=== PATIENT | male | born 1970 | race Caucasian/White ===

== ENCOUNTER 2016-11-20 04:20 | Emergency (ER) | payer OTHER ==
[~2016-11-20] VITALS: Ht 182.9 cm; Wt 136.4 kg
[2016-11-20] MEDS ORDERED: MELO15TA4 PO (04:29)
[2016-11-20] MEDS ORDERED: CELE10TA PO (04:29)
[2016-11-20] MEDS ORDERED: KETOROLAC 30 MG/ML VIAL (J1885) IV ONE (04:45)
[2016-11-20] MEDS ORDERED: NS 1,000 ML IV ONE (04:45)
[2016-11-20] MEDS ORDERED: ONDANSETRON 4MG/2ML VIAL (J2405) IV ONE (04:45)
[2016-11-20 05:01] LABS: BASO % 0.4 % (0.0-1.0); EOS # 0.2 K/mm3 (0.0-0.50); EOS % 1.8 % (0.0-3.0); LARGE UNSTAINED CELL # 0.2 K/mm3 (0.0-0.4); LARGE UNSTAINED CELL % 2.2 % (0.0-4.0); LYMPH # 2.3 K/mm3 (1.5-4.5); LYMPH % 23.9 % (24.0-44.0); MEAN CORPUSCULAR HEMOGLOBIN 29.2 pg (27.0-33.0); MEAN CORPUSCULAR HGB CONC 34.2 g/dl (32.0-36.5); MEAN CORPUSCULAR VOLUME 85.4 fl (80.0-96.0); MONO # 0.5 K/mm3 (0.0-0.8); MONO % 5.4 % (0.0-5.0); NEUTROPHILS # 6.4 K/mm3 (1.8-7.7); NEUTROPHILS % 66.3 % (36.0-66.0); PLATELET COUNT, AUTOMATED 218 k/mm3 (150-450); RED CELL DISTRIBUTION WIDTH 13.2 % (11.5-14.5); WHITE BLOOD COUNT 9.7 K/mm3 (4.0-10.0)
[2016-11-20 05:28] LABS: ALBUMIN 4.3 GM/DL (3.2-5.2); ALBUMIN/GLOBULIN RATIO 1.43 (1.00-1.93); ALKALINE PHOSPHATASE 72 U/L (45-117); ALT/SGPT 33 U/L (12-78); AMYLASE 39 U/L (25-115); ANION GAP 12 MEQ/L (8-16); AST/SGOT 20 U/L (15-37); BILIRUBIN,DIRECT 0.1 MG/DL (0.0-0.2); BILIRUBIN,TOTAL 0.6 MG/DL (0.2-1.0); BLOOD UREA NITROGEN 21 MG/DL (7-18); CALCIUM LEVEL 9.3 MG/DL (8.5-10.1); CARBON DIOXIDE LEVEL 24 MEQ/L (21-32); CHLORIDE LEVEL 106 MEQ/L (98-107); CREATININE FOR GFR 1.24 MG/DL (0.70-1.30); GLOMERULAR FILTRATION RATE > 60.0 (>60); GLUCOSE, FASTING 158 MG/DL (70-105); POTASSIUM SERUM 3.5 MEQ/L (3.5-5.1); SODIUM LEVEL 142 MEQ/L (136-145); TOTAL PROTEIN 7.3 GM/DL (6.4-8.2)
--- NOTE | 2016-11-20 07:20 | REPUSA ---
CLINICAL HISTORY: Abdominal pain. TECHNIQUE: Multiple axial, sagittal and coronal CT images were obtained through the abdomen and pelvi s without administration of oral or IV contrast material. COMMENTS: Recent passage of a 3 mm stone from the right collecting system into the bladder. The above described stone is noted in the bladder on the current exam. Mild perirenal fat stranding. Mild prostatomegaly. Mild diffuse thickening of the wall of the bladder. Prostatic calcifications. Uncomplicated diverticulosis. The liver is of uniform attenuation without mass or defect. There is no intra or extrahepatic biliary ductal dilatation. The spleen is normal. The gallbladder is within normal limits. The pancreas is of normal contour and attenuation characteristics. There is no evidence of adrenal mass. There is no evidence for appendicitis. There is no bowel wall thickening. No evidence for small or la rge bowel obstruction. There is no evidence of abdominal ascites or lymphadenopathy. There is no evidence of intrinsic or extrinsic bladder mass. There is no pelvic ascites or lymphadeno mariely. Images of the lung bases show no evidence of pleural or parenchymal mass. There are no pleural effusi ons. Chronic benign sclerotic lesion of the left sacral ala. The bony structures are free of lytic or blastic lesions. IMPRESSION: Recent passage of a stone from the right collecting system into the bladder. The stone is noted in the bladder on the current exam. Prostatomegaly. Diffuse thickening of the wall of the bladder. Uncomplicated diverticulosis. Thank you for your kind referral of this patient.
[2016-11-20 08:19] VITALS: BP 100/64
--- NOTE | 2016-11-20 10:02 | ED PDOC ---
Post-Departure Follow-Up radiology report faxed to PCP, Gisella Barrios MD Nov 20, 2016 10:02
== END 2016-11-20 08:24 | disposition home or self-care (01) ==
LOC: M ED 04:20
DX: N21.0 Calculus in bladder (principal); N40.1 Benign prostatic hyperplasia with lower urinary tract symptoms; F33.9 Major depressive disorder, recurrent, unspecified; M17.10 Unilateral primary osteoarthritis, unspecified knee; Z79.899 Other long term (current) drug therapy
CPT/HCPCS: 74176; 80048; 80076; 81001; 82150; 82550; 82553; 83690; 85025; 87086; 93041; 96361; 96374; 96375; 99284; J1885; J2405

== ENCOUNTER 2019-01-25 12:07 | Emergency (ER) | payer OTHER ==
[~2019-01-25] VITALS: Ht 182.9 cm; Wt 135.8 kg
[~2019-01-25 12:07] MED LIST: CELE10TA PO; MELO15TA28 PO
[2019-01-25] MEDS ORDERED: NS 1,000 ML IV ONE (12:30)
[2019-01-25 12:53] LABS: HEMATOCRIT 47.5 % (42.0-52.0); MEAN CORPUSCULAR HEMOGLOBIN 28.2 pg (27.0-33.0); MEAN CORPUSCULAR HGB CONC 33.7 g/dl (32.0-36.5); MEAN CORPUSCULAR VOLUME 83.8 fl (80.0-96.0); PLATELET COUNT, AUTOMATED 201 10^3/uL (150-450); RED BLOOD COUNT 5.67 10^6/uL (4.30-6.10); WHITE BLOOD COUNT 9.1 10^3/uL (4.0-10.0)
[2019-01-25] MEDS ORDERED: KETOROLAC 30 MG/ML VIAL (J1885) IV ONE (13:00)
[2019-01-25] MEDS ORDERED: METOCLOPRAMIDE INJ 10MG/2ML VIAL (J2765) IV ONE (13:00)
--- NOTE | 2019-01-25 13:00 | REP ---
Clinical: Cough. Technique: PA and lateral. Comparison: 07/26/2011. Findings: The mediastinum and cardiac silhouette are normal. Bronchitis and subtle scattered air space disease is suggested. Impression: Findings suggest bronchitis and subtle multifocal infiltrates (left greater than right) . Electronically Signed by Erasto Aguila MD 01/25/2019 12:51 P
[2019-01-25 13:14] LABS: BLOOD UREA NITROGEN 14 MG/DL (7-18); CALCIUM LEVEL 8.6 MG/DL (8.5-10.1); CARBON DIOXIDE LEVEL 26 MEQ/L (21-32); CHLORIDE LEVEL 101 MEQ/L (98-107); CREATININE FOR GFR 1.04 MG/DL (0.70-1.30); GLOMERULAR FILTRATION RATE > 60.0 (>60); GLUCOSE, FASTING 127 MG/DL (70-100); POTASSIUM SERUM 3.8 MEQ/L (3.5-5.1); SODIUM LEVEL 135 MEQ/L (136-145)
[2019-01-25 13:20] LABS: INFLUENZA A AMPLIFICATION NEGATIVE (NEGATIVE); INFLUENZA B AMPLIFICATION NEGATIVE (NEGATIVE)
[2019-01-25] MEDS ORDERED: ALBUTEROL 90 MCG/ACT 8GM HFA INHALER INH ONE (13:30)
[2019-01-25] MEDS ORDERED: PROAAER10 INH (14:00)
[2019-01-25 14:05] VITALS: BP 114/56
== END 2019-01-25 14:11 | disposition home or self-care (01) ==
LOC: M ED 12:07
DX: R51 Headache (principal); B34.9 Viral infection, unspecified; G89.29 Other chronic pain; Z87.820 Personal history of traumatic brain injury; Z79.899 Other long term (current) drug therapy
CPT/HCPCS: 71046; 80048; 85027; 87502; 94640; 96361; 96374; 96375; 99284; J1885; J2765

== ENCOUNTER 2020-09-26 12:26 | Emergency (ER) | payer OTHER ==
[~2020-09-26] VITALS: Ht 182.9 cm; Wt 143.0 kg
[~2020-09-26 12:26] MED LIST changes: +PROAAER10 INH
[2020-09-26] MEDS ORDERED: PRAZ1CAP PO (12:54)
--- NOTE | 2020-09-26 14:18 | REP ---
INDICATION: trauma COMPARISON: None. TECHNIQUE: Axial noncontrast images from the skull base to the thoracic inlet with coronal and sagittal re-formations This CT examination was performed using the following dose reduction techniques: Automated exposure control, adjustment of mA and/or kv according to the patient's size, and use of iterative reconstruction technique. FINDINGS: Normal alignment is maintained. Cervical vertebral bodies including transverse processes and spinous processes are intact and there is no evidence for acute fracture / compression injury or subluxation. Moderate early advanced multilevel degenerative changes include endplate sclerosis, disc space narrowing, osteophytosis and facet hypertrophy paravertebral soft tissues are within normal limits. IMPRESSION: Moderate/advanced multilevel degenerative spondylosis. No evidence for acute pathology or trauma/injury. <Electronically signed by Erasto Aguila > 09/26/20 [id number]
[2020-09-26 14:19] LABS: BASO % 0.6 % (0.0-1.0); EOS # 0.2 10^3/uL (0.0-0.5); EOS % 2.4 % (0.0-3.0); HEMATOCRIT 44.7 % (42.0-52.0); HEMOGLOBIN 14.7 g/dl (13.5-17.5); LYMPH # 1.7 10^3/uL (1.5-5.0); LYMPH % 26.5 % (24.0-44.0); MEAN CORPUSCULAR HEMOGLOBIN 28.2 pg (27.0-33.0); MEAN CORPUSCULAR HGB CONC 32.9 g/dl (32.0-36.5); MEAN CORPUSCULAR VOLUME 85.8 fl (80.0-96.0); MONO # 0.5 10^3/uL (0.0-0.8); MONO % 8.2 % (2.0-8.0); NEUTROPHILS # 3.9 10^3/uL (1.5-8.5); NEUTROPHILS % 62.1 % (36.0-66.0); PLATELET COUNT, AUTOMATED 230 10^3/uL (150-450); RED BLOOD COUNT 5.21 10^6/uL (4.30-6.10); WHITE BLOOD COUNT 6.3 10^3/uL (4.0-10.0)
--- NOTE | 2020-09-26 14:19 | REP ---
INDICATION: trauma. COMPARISON: None. TECHNIQUE: Axial noncontrast images of the lumbosacral spine from mid T12 through mid sacrum with coronal and sagittal reformations. This CT examination was performed using the following dose reduction techniques: Automated exposure control, adjustment of mA and/or kv according to the patient's size, and use of iterative reconstruction technique. FINDINGS: Alignment and lordosis maintained. Vertebral bodies are intact. There is no evidence for acute fracture/compression injury or subluxation. The spinal canal is patent. Degenerative disc osteophyte complex with endplate sclerosis and disc space narrowing at L4-5 and T12-L1 and to a lesser extent L5-S1. IMPRESSION: Multilevel degenerative spondylosis. No acute fracture/compression injury or subluxation. <Electronically signed by Erasto Aguila > 09/26/20 [id number]
[2020-09-26 14:46] LABS: ALBUMIN 3.9 GM/DL (3.2-5.2); ALT/SGPT 21 U/L (12-78); BILIRUBIN,TOTAL 0.5 MG/DL (0.2-1.0); BLOOD UREA NITROGEN 18 MG/DL (7-18); CALCIUM LEVEL 8.5 MG/DL (8.5-10.1); CARBON DIOXIDE LEVEL 28 MEQ/L (21-32); CHLORIDE LEVEL 108 MEQ/L (98-107); CREATININE FOR GFR 0.87 MG/DL (0.70-1.30); GLOMERULAR FILTRATION RATE > 60.0 (>60); GLUCOSE, FASTING 98 MG/DL (70-100); MAGNESIUM LEVEL 2.4 MG/DL (1.8-2.4); POTASSIUM SERUM 4.5 MEQ/L (3.5-5.1); SODIUM LEVEL 140 MEQ/L (136-145); TOTAL PROTEIN 6.8 GM/DL (6.4-8.2)
[2020-09-26 15:59] VITALS: BP 128/84
== END 2020-09-26 16:10 | disposition home or self-care (01) ==
LOC: M ED 12:26 → EDBD 12:26 → M ED 16:10
DX: S39.012A Strain of muscle, fascia and tendon of lower back, initial encounter (principal); S16.1XXA Strain of muscle, fascia and tendon at neck level, initial encounter; V43.52XA Car driver injured in collision with other type car in traffic accident, initial encounter; Y92.9 Unspecified place or not applicable; Y93.9 Activity, unspecified; Y99.9 Unspecified external cause status; F43.10 Post-traumatic stress disorder, unspecified; F32.9 Major depressive disorder, single episode, unspecified; M25.78 Osteophyte, vertebrae; Z79.899 Other long term (current) drug therapy

== ENCOUNTER 2020-11-12 17:13 | Emergency (ER) | payer OTHER ==
[~2020-11-12] VITALS: Ht 182.9 cm; Wt 139.4 kg
[~2020-11-12 17:13] MED LIST changes: +PRAZ1CAP PO
[2020-11-12] MEDS ORDERED: NS 1,000 ML IV ONE (19:55)
[2020-11-12] MEDS ORDERED: cefTRIAXone SOD 1 GM in D5W MINI-BAG PLUS 50 ML IV ONE (19:55)
[2020-11-12] MEDS ORDERED: KETOROLAC 30 MG/ML 1ML VIAL IV ONE (19:55)
[2020-11-12] MEDS ORDERED: METOCLOPRAMIDE INJ 10MG/2ML VIAL (J2765 PER 1) IV ONE (19:55)
[2020-11-12 20:32] LABS: BASO % 0.5 % (0.0-1.0); EOS % 0.2 % (0.0-3.0); HEMATOCRIT 45.4 % (42.0-52.0); HEMOGLOBIN 15.6 g/dl (13.5-17.5); LYMPH % 15.9 % (24.0-44.0); MEAN CORPUSCULAR HEMOGLOBIN 28.7 pg (27.0-33.0); MEAN CORPUSCULAR HGB CONC 34.4 g/dl (32.0-36.5); MEAN CORPUSCULAR VOLUME 83.5 fl (80.0-96.0); MONO # 0.5 10^3/uL (0.0-0.8); MONO % 7.7 % (2.0-8.0); NEUTROPHILS # 4.7 10^3/uL (1.5-8.5); NEUTROPHILS % 75.5 % (36.0-66.0); PLATELET COUNT, AUTOMATED 179 10^3/uL (150-450); RED BLOOD COUNT 5.44 10^6/uL (4.30-6.10); WHITE BLOOD COUNT 6.2 10^3/uL (4.0-10.0)
[2020-11-12 20:57] LABS: ERYTHROCYTE SEDIMENTATION RATE 3 mm/hr (0-15)
[2020-11-12] MEDS ORDERED: DOXY1CAP62 PO (22:28)
[2020-11-12 23:27] VITALS: BP 135/82
== END 2020-11-12 23:28 | disposition home or self-care (01) ==
LOC: M ED 17:13
DX: L03.116 Cellulitis of left lower limb (principal); R42 Dizziness and giddiness; Z79.899 Other long term (current) drug therapy
CPT/HCPCS: 80047; 83605; 85025; 85652; 86140; 96365; 96375; 99284; J0696; J1885; J2765